=== PATIENT | female | born 1980 ===

== ENCOUNTER 2016-06-17 10:23 | Outpatient (CLI) | payer OTHER | END 2016-06-17 23:59 | DX: R30.0 Dysuria (principal) ==

== ENCOUNTER 2016-07-22 15:56 | Outpatient (CLI) | payer OTHER | END 2016-07-22 15:57 | disposition home or self-care (01) | DX: N83.299 Other ovarian cyst, unspecified side (principal); Z97.5 Presence of (intrauterine) contraceptive device ==

== ENCOUNTER 2016-08-23 15:54 | Outpatient (CLI) | payer OTHER | END 2016-08-23 15:55 | disposition home or self-care (01) | DX: R53.83 Other fatigue (principal) ==

== ENCOUNTER 2016-08-26 15:44 | Outpatient (CLI) | payer OTHER | END 2016-08-26 15:45 | disposition home or self-care (01) | DX: R30.0 Dysuria (principal) ==

== ENCOUNTER 2016-09-02 14:29 | Outpatient (CLI) | payer OTHER | END 2016-09-02 14:30 | disposition home or self-care (01) | DX: R53.83 Other fatigue (principal) ==

== ENCOUNTER 2016-10-19 08:51 | Outpatient (CLI) | payer OTHER | END 2016-10-19 23:59 | LOC: LAB.R 08:51 | PROVIDERS: ATTEND Nurse Practitioner Obstetrics & Gynecology | DX: R35.0 Frequency of micturition (principal) | CPT/HCPCS: 87086 ==